=== PATIENT | female | born 1985 | race American Indian/Alaskan Native ===

== ENCOUNTER 2017-05-01 04:05 | Emergency (ER) | payer OTHER ==
[2017-05-01 04:05] VITALS: BMI 23.8
[2017-05-01] MEDS ORDERED: DiphenhydrAMINE 50 mg/ml Inj IVP STA (04:27)
[2017-05-01] MEDS ORDERED: Sodium Chloride 0.9% 1,000 ML IV STA (04:27)
--- NOTE | 2017-05-01 04:33 | ED PDOC ---
HPI: Abdomen Chief Complaint (Provider): abdominal pain History Per: Patient History/Exam Limitations: no limitations Onset/Duration Of Symptoms: Days (2) Current Symptoms Are (Timing): Still Present Location Of Pain/Discomfort: Diffuse Quality Of Discomfort: "Pain" Associated Symptoms: Nausea, Vomiting, Diarrhea Additional History Per: Patient <Charlee Ramirez - Last Filed: 05/01/17 06:01> <Phillip Dorman - Last Filed: 05/01/17 08:17> Time Seen by Provider: 05/01/17 04:16 Chief Complaint (Nursing): Abdominal Pain Additional Complaint(s): 31 y/o female history of diabetes, gastroparesis presents with diffuse abdominal pain x 2 days. Associated nausea, vomiting, and diarrhea. Patient evaluated by her PMD yesterday and prescribed Zofran, but states it is not helping. Patient last saw her GI doctor last week. Denies fever, chest pain, shortness of breath, palpitations, urinary symptoms, recent travel, sick contacts. Patient requesting IV benadryl to go with whatever pain medication she is getting. (Charlee Raimrez) Supervising Attending Note <Charlee Ramirez - Last Filed: 05/01/17 06:01> - Attestation: I have personally seen and examined this patient.: Yes I have fully participated in the care of the patient.: Yes I have reviewed all pertinent clinical information: Yes <Phillip Dorman - Last Filed: 05/01/17 08:17> - Notes: Notes:: 0700 Pt. has leukocytosis, likely from vomiting. Pt. requesting "1 unit" of narcotics, however patient was reminded of chronic pain/opiate policy. Chart review demonstrates that patient responded well to amitryptiline. Will give one dose and reassess. Signed out to Dr. pritchett. (Phillip Dorman) Past Medical History Reviewed: Historical Data, Nursing Documentation, Vital Signs - Medical History PMH: Anxiety, Depression, Diabetes, Gastritis, HTN, Osteoporosis (pt unsure of this hx), Sickle Cell Disease ("JUST FOUND OUT A MONTH AGO"), Chronic Pain Denies: Crohn's Disease, Diverticulitis, Gall Bladder Disease, HIV, Pancreatitis, Chronic Kidney Disease - Surgical History Surgical History: Endoscopy - Family History Family History: States: Unknown Family Hx, Diabetes - Immunization History Hx Tetanus Toxoid Vaccination: Yes Hx Influenza Vaccination: Yes Hx Pneumococcal Vaccination: No <Charlee Ramirez - Last Filed: 05/01/17 06:01> <Phillip Dorman - Last Filed: 05/01/17 08:17> Vital Signs: Last Vital Signs Temp 97.8 F 05/01/17 04:17 Pulse 76 05/01/17 08:15 Resp 18 05/01/17 08:15 BP 140/80 05/01/17 08:15 Pulse Ox 98 05/01/17 08:15 - Home Medications Home Medications: Ambulatory Orders Medication Instructions Recorded metFORMIN [glucOPHAGE] 500 mg PO BID 12/21/16 - Allergies Allergies/Adverse Reactions: Allergies Allergy/AdvReac Type Severity Reaction Status Date / Time No Known Allergies Allergy Verified 05/01/17 04:19 Review of Systems ROS Statement: Except As Marked, All Systems Reviewed And Found Negative Gastrointestinal: Positive for: Nausea, Vomiting, Abdominal Pain, Diarrhea <Charlee Ramirez - Last Filed: 05/01/17 06:01> Physical Exam - Reviewed Nursing Documentation Reviewed: Yes Vital Signs Reviewed: Yes - Physical Exam Appears: Positive for: Well, Non-toxic, No Acute Distress Head Exam: Positive for: ATRAUMATIC, NORMAL INSPECTION, NORMOCEPHALIC Skin: Positive for: Normal Color Eye Exam: Positive for: Normal appearance ENT: Positive for: Normal ENT Inspection Cardiovascular/Chest: Positive for: Regular Rate, Rhythm Respiratory: Positive for: Normal Breath Sounds Gastrointestinal/Abdominal: Positive for: Normal Exam, Bowel Sounds, Soft, Tenderness (diffuse) Back: Positive for: Normal Inspection Extremity: Positive for: Normal ROM Neurologic/Psych: Positive for: Alert, Oriented <Charlee Ramirez - Last Filed: 05/01/17 06:01> - Laboratory Results Result Diagrams: 05/01/17 05:40 05/01/17 05:40 - ECG O2 Sat by Pulse Oximetry: 97 <Charlee Ramirez - Last Filed: 05/01/17 06:01> - Laboratory Results Result Diagrams: 05/01/17 05:40 05/01/17 05:40 <Phillip Dorman - Last Filed: 05/01/17 08:17> - Progress ED Course And Treament: Patient walked behind nursing station to notify underwriter solicitation director that she needs medication for pain. Chart reviewed, patient with multiple ED visits/admission to [facility] for same; history of drug-seeking behavior. Patient was educated on our narcotic policy and advised that she will be treated with nonnarcotics for chronic pain. (Charlee Ramirez) Disposition - Disposition Disposition Time: 06:00 Patient Signed Over To: Phillip Dorman Handoff Comments: labs, re-eval <Charlee Ramirez - Last Filed: 05/01/17 06:01> - Patient ED Disposition Is Patient to be Admitted: Transfer of Care - Disposition Disposition: Transfer of Care Disposition Time: 07:00 Patient Signed Over To: Asiya Pritchett Handoff Comments: re-thomas s/p meds, po challenge <Phillip Dorman - Last Filed: 05/01/17 08:17> - Clinical Impression Clinical Impression: Abdominal pain - Disposition Condition: STABLE
[2017-05-01] MEDS ORDERED: DiphenhydrAMINE 50 mg/ml Inj ONE (05:23)
[2017-05-01 05:53] LABS: BASO # 0.1 K/uL (0.0-0.2); BASO % 0.5 % (0.0-2.0); EOS % 0.1 % (0.0-4.0); HEMOGLOBIN 13.9 g/dL (12.0-16.0); LYMPH # 0.7 K/uL (1.0-4.3); LYMPH % 5.5 % (20.0-40.0); MEAN CORPUSCULAR HEMOGLOBIN 27.8 pg (27.0-31.0); MEAN CORPUSCULAR HGB CONC 33.1 g/dL (33.0-37.0); MEAN PLATELET VOLUME 7.7 fl (7.2-11.7); MONO # 0.4 K/uL (0.0-0.8); MONO % 2.9 % (0.0-10.0); NEUT # 12.1 K/uL (1.8-7.0); NRBC % 0.1 % (0.0-0.0); PLATELET COUNT 331 K/uL (130-400); RED CELL DISTRIBUTION WIDTH 14.3 % (11.5-14.5); WHITE BLOOD COUNT 13.3 K/uL (4.8-10.8)
[2017-05-01 06:01] LABS: ALB/GLOB RATIO 1.3 (1.0-2.1); ALBUMIN 5.3 g/dL (3.5-5.0); ALT/SGPT 60 U/L (9-52); AST/SGOT 34 U/L (14-36); BLOOD UREA NITROGEN 19 mg/dl (7-17); CALCIUM 10.2 mg/dL (8.4-10.2); GFR AFRICAN-AMERICAN > 60; GFR NON-AFRICAN AMERICAN > 60; LIPASE 41 U/L (23-300)
[2017-05-01 06:30] LABS: LYMPHOCYTE 4 % (20-50); MONOCYTE 3 % (0-10); NEUTROPHIL 93 % (42-75); TOTAL CELLS COUNTED 100
[2017-05-01 06:31] LABS: ANISOCYTOSIS SLIGHT; PLATELET ESTIMATE NORMAL (NORMAL)
[2017-05-01 06:32] LABS: OVALOCYTES SLIGHT; POIKILOCYTOSIS SLIGHT
[2017-05-01 07:14] LABS: SQUAMOUS EPITHIAL 1 /hpf (0-5); URINE BACTERIA RARE (<OCC); URINE BILIRUBIN NEGATIVE (NEGATIVE); URINE BLOOD SMALL (NEGATIVE); URINE CLARITY SLIGHTY-CLOUDY (Clear); URINE COLOR YELLOW (YELLOW); URINE GLUCOSE (UA) 50 mg/dL (Normal); URINE LEUKOCYTE ESTERASE NEG Leu/uL (Negative); URINE NITRATE NEGATIVE (NEGATIVE); URINE PROTEIN >=500 mg/dL (NEGATIVE); URINE UROBILINOGEN 0.2-1.0 mg/dL (0.2-1.0)
[2017-05-01 07:38] LABS: BARBITURATES, UR NEGATIVE (NEGATIVE); BENZODIAZEPINES, UR NEGATIVE (NEGATIVE); OPIATES, UR NEGATIVE (NEGATIVE); PHENCYCLIDINE, UR NEGATIVE (NEGATIVE)
[2017-05-01 08:15] VITALS: O2SAT 98
--- NOTE | 2017-05-01 08:42 | ED PDOC ---
- Laboratory Results Result Diagrams: 05/01/17 05:40 05/01/17 05:40 - ECG O2 Sat by Pulse Oximetry: 98 Medical Decision Making Medical Decision Making: Time: 07:00 Patient signed out to me by Dr. Dorman pending PO trial. pt tolerated po in ED stable for dc. Scribe Attestation: Documented by Jabier Arenas, acting as a scribe for Asiya Pritchett MD. Provider Scribe Attestation: All medical record entries made by the Scribe were at my direction and personally dictated by me. I have reviewed the chart and agree that the record accurately reflects my personal performance of the history, physical exam, medical decision making, and the department course for this patient. I have also personally directed, reviewed, and agree with the discharge instructions and disposition. Disposition - Clinical Impression Clinical Impression: Abdominal pain - POA Present On Arrival: None - Disposition Referrals: [facility] [Outside] [facility] [Outside] Disposition: Routine/Home Disposition Time: 09:00 Condition: IMPROVED Additional Instructions: follow up with your primary doctor in 1-2 days return to the ED with any worsening or concerning symptoms. Instructions: Chronic Pain (DC) Forms: Hall ([place]i)
[2017-05-01 08:56] VITALS: BP 127/78; PULSE 78; RESP 20; TEMP 97
== END 2017-05-01 08:54 | disposition home or self-care (01) ==
LOC: H.ER 04:05
DX: R10.9 Unspecified abdominal pain (principal); E11.9 Type 2 diabetes mellitus without complications; Z86.59 Personal history of other mental and behavioral disorders; I10 Essential (primary) hypertension; M81.0 Age-related osteoporosis without current pathological fracture; Z79.84 Long term (current) use of oral hypoglycemic drugs
CPT/HCPCS: 80053; 80324; 80345; 80346; 80349; 80353; 80358; 80361; 81003; 81025; 82948; 83690; 83992; 85025; 96374; 96375; 99283; J1200; J1885; J2405; J2550; J7040